=== PATIENT | female | born 1965 | race Two or more races ===

== ENCOUNTER → 2024-03-25 | Outpatient (CLI) | payer BC, SELFPAY ==
[2024-03-25 10:17] LABS: Collection Type, Urine Clean Catch
[2024-03-25 10:40] LABS: Basophils # (Auto) 0.1 Thou/mm3 (0.0-0.2); Basophils % (Auto) 1 % (0-2.5); Eosinophils # (Auto) 0.7 Thou/mm3 (0.0-0.5); Eosinophils % (Auto) 7 % (0-10); Hematocrit 31.3 % (36.0-46.0); Hemoglobin 10.1 g/dL (12.0-16.0); Immature Granulocytes % (Auto) 0 % (0-0); Immature Granulocytes Auto 0.02 Thou/mm3 (0.00-0.00); Lymphocytes # (Auto) 2.1 Thou/mm3 (1.0-4.8); Lymphocytes % (Auto) 22 % (10-50); Mean Corpuscular HGB Conc 32.3 g/dl (31.0-37.0); Mean Corpuscular Hemoglobin 31.2 pg (25.0-35.0); Mean Corpuscular Volume 97 fL (80-100); Monocytes % (Auto) 11 % (0-12); Neutrophils # (Auto) 5.5 Thou/mm3 (1.8-7.7); Neutrophils % (Auto) 59 % (37-80); Nucleated Red Blood Cell % 0 /100 WBC (0); Platelet Count 141 Thou/mm3 (140-440); RDW Standard Deviation 59.6 fL (36.4-46.3); Red Blood Count 3.24 Miln/mm3 (4.00-5.20); White Blood Count 9.3 Thou/mm3 (3.6-11.0)
[2024-03-25 10:57] LABS: Bacteria,Urine 4+; Bilirubin,Urine Negative (Negative); Blood,Urine 2+ (Negative); Glucose, Urine Negative (Negative); Ketones,Urine Trace (Negative); Leukocyte Esterase,Urine Positive (Negative); Nitrite,Urine Negative (Negative); PH,Urine 6.5 (5.0-7.0); Protein,Urine 4+ (Neg - Trace); RBC,Urine 3 /hpf (0-3); Squamous Epithelial Cell,Urine 5 /hpf (0-5); Urobilinogen,Urine Negative mg/dL (0.0-1.0); WBC,Urine 854 /hpf (0-5)
[2024-03-25 11:00] LABS: Clarity,Urine Turbid (Clear/Hazy); Color,Urine Amber (Lt Yel-Yel)
[2024-03-25 11:02] LABS: Glucose Estimated Average 137 mg/dL (80-131); Hemoglobin A1C 6.4 % Hgb (4.8-6.0)
[2024-03-25 11:10] LABS: Creatinine MALB Rnd Ur 74 mg/dL (30-125); Microalbumin Creat Ratio 5135 mg/gCrea (<30); Microalbumin, Random Urine > 3800 mg/L (0-300)
[2024-03-25 11:10] LABS: Alanine Aminotransferase 11 U/L (10-49); Albumin, Serum 3.9 gm/dL (3.5-5.0); Albumin/Globulin Ratio 1.3 (1.2-2.2); Alkaline Phosphatase 126 U/L (46-116); Anion Gap 10 (7-16); BUN/Creatinine Ratio 7 Ratio (12-20); Bilirubin,Total 0.2 mg/dL (0.3-1.2); Blood Urea Nitrogen 51 mg/dL (9-23); Calcium 8.5 mg/dL (8.3-10.6); Calcium (Corrected) 8.6 mg/dL (8.5-10.1); Carbon Dioxide 29.2 mMol/L (20.0-31.0); Cardiac Risk Estimate 3.1 RATIO (3.7-5.6); Chloride 97 mMol/L (98-107); Cholesterol 130 mg/dL (132-200); Creatinine (Component) 7.4 mg/dL (0.6-1.3); Globulin 3.1 gm/dL (2.3-3.5); Glucose 119 mg/dL (74-106); HDL Cholesterol 42 mg/dL (40-60); LDL Cholesterol,Calculated 60 mg/dL (0-130); Osmolality,Calculated 286 (275-295); Sodium 136 mMol/L (136-145); Triglycerides 141 mg/dL (30-150); eGFR 6 See Note
[2024-03-25 11:31] LABS: Aspartate Amino Transferase 12 U/L (0-34)
== END | disposition home or self-care (01) ==
LOC: COPL 09:40
PROVIDERS: PCP Family Medicine; Referring Provider Family Medicine; Visit Provider Family Medicine
DX: E11.65 Type 2 diabetes mellitus with hyperglycemia (principal)
CPT/HCPCS: 36415; 80053; 80061; 81001; 82043; 82570; 83036; 85025

== ENCOUNTER 2024-05-18 11:06 | Emergency (ER) | payer BC, SELFPAY ==
[2024-05-18] VITALS (9 sets, daily range): BP systolic 111–185; BP diastolic 65–85; PULSE 60–85; RESP 12–20; TEMP 36.4–36.6; O2SAT 94–100; BMI 31.1; BMI 29.9
--- NOTE | 2024-05-18 | XR_ITS ---
Examinations: MRI Brain without intravenous contrast. MRA brain without intravenous contrast. MRA carotids without intravenous contrast 3-D vascular reconstructions Date and time of exam: May 18, 2024 1313 hours INDICATIONS: Patient collapsed today, hyperdense area in the right suprasellar region on CT brain scan today Technique: Multiple axial and sagittal images of the brain have been obtained MRA brain carotid images without contrast obtained, including 3-D postprocessing, vascular maximum intensity projection images Findings: Sellaturcica is not enlarged. The optic chiasm and infundibular stalk are not remarkable. Prepontine and interpeduncular cisterns are not enlarged. No localized enlargement of the medulla or betsy. Fourth ventricle and cerebellar tonsils normal in position. Subacute hemorrhage is not seen. Fourth ventricle is midline. Mass in the cerebellopontine angle region is not evident. 7th and 8th nerve complexes exhibits symmetry. Globes are symmetrical with no retro-orbital mass. Increased white matter signal moderate Diffusion-weighted images demonstrate no focus of restricted diffusion Mass-effect upon the ventricular system is not identified. MRA carotid images degraded by patient motion. MRA brain images no large vessel occlusions thrombus dissection or definite cerebral aneurysm Impression: Negative for acute hemorrhage mass effect or midline shift No acute infarct Moderate chronic microvascular white matter change
--- NOTE | 2024-05-18 11:13 | EKG_ITS ---
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
--- NOTE | 2024-05-18 11:13 | XR_ITS ---
Examination: CT cervical spine without contrast 2-D sagittal reconstructions 2-D coronal reconstructions 3-D reconstructions. Exam date and time:May 18, 2024 1119 hours INDICATIONS: Patient fell today with into the neck, neck pain CTDI:vol (mGy) 8.14 DLP: (mGycm) 160 Technique: Multiple 2 mm axial sections of the cervical spine have been obtained. The coronal and sagittal reconstructions have been obtained. 3-D reconstructions have been obtained. Low dose protocols were performed. One or more of the following dose reduction techniques were used; automated exposure control, adjustment of the mA and/or KV according to patient size, use of iterative reconstruction technique. Findings: Axial sections demonstrate intact base of the skull. C1 exhibit satisfactory relationship to the odontoid. No acute cervical vertebral body fracture seen. Alignment posterior spinous processes satisfactory. Impression: No acute cervical fracture.
--- NOTE | 2024-05-18 11:13 | XR_ITS ---
Examination: CT brain head without contrast. 2-D sagittal coronal reconstructions Date and time of exam:May 18, 2024 1119 hours INDICATIONS: Patient fell today after syncopal episode, head pain CTDI: vol (mGy):52.8 DLP: (mGycm):1028 Technique: Multiple CT axial sections of the brain have been obtained, 5 mm slice thickness. Contrast has not been administered. 2-D sagittal, coronal reconstructions have been obtained Low dose protocols were performed. One or more of the following dose reduction techniques were used; automated exposure control, adjustment of the mA and/or KV according to patient size, use of iterative reconstruction technique. Findings: Hyperdense area in the right suprasellar region, coronal image 25, axial image 26, AP dimension of this hyperdense area is 10 mm Differential would include cerebral aneurysm Ventricles are not enlarged No mass effect upon the ventricular system Cranial vault intact IMPRESSION: Hyperdense area in the right suprasellar region, coronal image 25, axial image 26, AP dimension 10 mm medial lateral dimension 8 mm, differential would include cerebral aneurysm with early rupture Recommend brain MRI MRA follow-up pre and postcontrast
--- NOTE | 2024-05-18 11:16 | PD.EDADULT ---
ED General RME/HPI General Chief complaint: Syncope / Near Syncope Stated complaint: SYNCOPAL EPISODE Time Seen by Provider: 05/18/24 11:13 Arrival date/time: 05/18/24 11:06 CC: Syncope HPI patient presents the ER via EMS report hypertension but no other abnormal vital signs, the patient states she does not recall the event at all other than waking up in the ambulance. 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 The patient had no premonition including lightheadedness dizziness flushed sensation nausea or vomiting. Patient is a dialysis patient seen by Dr. Abdalla and is dialyzed Thursday and Thursday. Currently complaining of pain to the back of her head. Currently patient is awake alert oriented no focal deficits not in any acute distress. Related Data Home Medications ?Medication ?Instructions ?Recorded ?Confirmed insulin glargine U-300 conc 300 10 unit subcut QDAY 04/14/22 04/20/23 unit/mL (1.5 mL) subcutaneous pen (TouAstrostaroStar U-300 Insulin) furosemide 80 mg tablet (Lasix) 80 mg PO BID 06/02/22 04/20/23 losartan 50 mg-hydrochlorothiazide 1 tab QDAY 06/02/22 04/20/23 12.5 mg tablet Previous Rx's ?Medication ?Instructions ?Recorded dicyclomine 20 mg tablet 20 mg PO BID PRN pain #20 tabs 05/31/22 docusate sodium 100 mg capsule 100 mg PO BID #40 caps 06/04/22 hydrocodone 7.5 mg-acetaminophen 1 tab PO Q6H PRN pain (scale score 06/04/22 325 mg tablet 7-10) #20 tabs Allergies Allergy/AdvReac Type Severity Reaction Status Date / Time JALAPENOS Allergy Unknown Unresponsiv Uncoded 04/20/23 10:01 e Review of Systems Review of Systems Narrative Review of Systems: GEN: No fever, no chills, no weight loss EYES: No discharge, no visual changes, no pain HEENT: No ear pain, no congestion, no sore throat PULM: No shortness of breath, no cough, no congestion CV: No chest pain, no dyspnea on exertion, no palpitations GI: No nausea, no vomiting, no diarrhea, no pain, no constipation : No frequency, no urgency, no dysuria MUSC/SKEL: No joint pain, no back pain SKIN: No rash PSYCH: No hallucinations, no depression HEME/LYMPH: No easy bleeding or bruising tendencies NEURO: No weakness, + headache Past Medical History Past Medical History NEUROLOGIC: Negative Neurological Disorders or Seizures CARDIAC: Positive Cardiac Disorders, Hypercholesterolemia, Congestive Heart Failure and Hypertension RESPIRATORY: Positive Asthma and Bronchitis; Negative Chronic Obstructive Pulmonary Disease (COPD) GASTROINTESTINAL: Positive Gastrointestinal Disorders and Gall Bladder Disease GENITOURINARY: Positive Genitourinary Disorders (needs dialysis) and Renal Disease REPRODUCTIVE: Negative Previous Pregnancies MUSCULOSKELETAL: Positive Musculoskeletal Disorders and Arthritis ENDOCRINE: Positive Endocrine Disorders and Diabetes Mellitus Type 2; Negative Diabetes Mellitus Type 1 HEMATOLOGIC: Positive Blood Disorders and Anemia PSYCHO/SOCIAL: Positive Anxiety (many years ago) OTHER HISTORY: Positive Blood Transfusions and Cancer; Negative Blood Transfusion Reaction, Anesthesia Reactions, Chemotherapy or Radiation Therapy Family History FAMILY HISTORY: Positive Family Cardiac Disorders Surgical History SURGICAL: Positive Ear Surgery, Tympanostomy Tube (as a child), Tonsillectomy, Abdominal Surgery and Hysterectomy (2008); Negative Cardiac Surgery, Pacemaker, Joint Replacement or Tubal Ligation Social History SMOKING STATUS: Never smoker SUBSTANCE USE: does not use ED Exam Narrative Physical exam: [General: Obese not in any acute distress Head normocephalic HEENT: Within acceptable limits Neck is supple nontender Chest equal chest rise nontender to palpation, right anterior chest dialysis catheter dressing clean dry and intact. Respiratory: Clear to auscultation no wheezes crackles or rubs CV: Rate rhythm is regular no murmurs rubs or clicks Abdomen is distended secondary to body habitus soft nontender no masses positive bowel sounds all 4 quadrants Back: No CVA tenderness no spinous process tenderness from cervical spine thoracic and lumbar spine Skin: Intact no petechiae rash induration ulceration or crepitus Extremities: Moving all extremity against resistance cap refill less than 2 seconds neurosensory intact Neuro: Awake alert oriented x3 Glascow coma 15 no focal deficits] Course Course Course Narrative: Patient's case discussed with the transfer nurse, patient accepted by Dr. Nieves at [facility]. We will address the hyperkalemia prior to transport. Patient is in agreement with the plan. Quality Measures none Orders Category Date Time Status EKG (ED ONLY) *Do not use* NOW Care 05/18/24 11:13 Completed MRI Screening NOW Care 05/18/24 12:05 Active MRI Screening NOW Care 05/18/24 13:08 Active Transfer to another facility [Transfer/Discharge] Stat Discharge 05/18/24 13:[address] cervical spine wo con Stat Exams 05/18/24 11:[address] head/brain wo con Stat Exams 05/18/24 11:13 Completed EKG (ED Only) Stat Exams 05/18/24 11:13 Ordered MR brain wo MRA brn wo avalos wo Stat Exams 05/18/24 Ordered MR brain wwo MRA brn wo avalos w Stat Exams 05/18/24 Ordered B-Type Natriuretic Peptide Stat Lab 05/18/24 11:59 Completed CBC Stat Lab 05/18/24 11:59 Completed Comprehensive Metabolic Panel Stat Lab 05/18/24 11:59 Completed Drug Screen,Urine Stat Lab 05/18/24 11:13 Ordered LDH (Lactate Dehydrogenase) Stat Lab 05/18/24 11:59 Completed Magnesium Stat Lab 05/18/24 11:59 Completed Partial Thromboplastin Time Stat Lab 05/18/24 14:00 Received Prothrombin Time with INR Stat Lab 05/18/24 14:00 Received Troponin I Stat Lab 05/18/24 11:59 Completed Urinalysis Stat Lab 05/18/24 11:13 Ordered ALBUTEROL RT 0.5ml [Proventil Rt 0.5ml] Med 05/18/24 13:54 Discontinued 2.5 mg INH X1 ONE Calcium Gluconate 10% Inj Med 05/18/24 13:54 Discontinued 1 gm IV X1 ONE Dextrose 50% Syr [D50w Syringe Abboject] Med 05/18/24 13:54 Discontinued 25 ml IV X1 ONE Insulin Regular Med 05/18/24 13:54 Discontinued 5 unit IV X1 ONE Sodium Chloride Rt Shiloh 0.9% [NS Rt Shiloh 0.9%] Med 05/18/24 13:54 Active 3 ml INH PRN PRN Vital Signs Vital signs: Vital Signs Pulse Rate 83 05/18/24 11:10 Blood Pressure 185/72 H 05/18/24 11:10 Pulse Oximetry (%) 97 05/18/24 11:10 Oxygen Delivery Method Room Air 05/18/24 11:10 [facility] Patient data External records reviewed:: [facility] previous records and EMS form Clinical information provided by:: patient and EMS Social determinants that could affect healthcare access:: none Patient has the following chronic illnesses:: ESRD on dialysis diabetes How is presenting disease/condition affected by chronic disease/condition?: uneffected by Evaluation data The following diagnostics were reviewed and interpreted by me:: lab results, radiology exam(s) and EKG tracing(s) Lab and/or radiology exams considered but not ordered:: EKG performed at 1122 shows a ventricular rate of 84. Of 190 QRS of 93 QTc of 433 is sinus rhythm nonspecific ST segment changes. When compared to an old EKG of May 2022 there are no significant changes. Interpretation Summary: CT head without contrast shows the patient has a hypertensive area in the right suprasellar region which may represent cerebral aneurysm with early rupture. Will now do MRI/MRA brain and carotids. CBC shows leukocytosis of 11.4 H&H of 11.2 and 33.1 respectively with platelets at 168. CMP shows sodium 134 potassium is 6.0 BUN of 60 creatinine of 7.8 glucose of 138 no transaminitis or T. bili elevation Medications Medications considered but not ordered:: None Medication administrations:: Medication Administration History Sodium Chloride (Sodium Chloride Rt Shiloh 0.9% 3 Ml Nebu) 3 ml INH PRN PRN PRN Reason: SOLN Stop: 06/17/24 13:53 Last Admin: 05/18/24 14:11 Dose: 3 ml Documented By: ECHO Discontinued Medications Albuterol (Albuterol Rt 2.5 Mg/0.5 Ml Nebu) 2.5 mg INH X1 ONE Stop: 05/18/24 13:55 Last Admin: 05/18/24 14:11 Dose: 2.5 mg Documented By: ECHO Calcium Gluconate (Calcium Gluconate 10% Inj 1 Gm/10 Ml Vial) 1 gm IV X1 ONE Stop: 05/18/24 13:55 Dextrose (Dextrose 50%-Water Inj 50 Ml Syringe) 25 ml IV X1 ONE Stop: 05/18/24 13:55 Insulin Human Regular (Insulin Hum Regular 1 Unit/0.01 Ml (Per Unit)) 5 unit IV X1 ONE Stop: 05/18/24 13:55 None Consultations Consultation(s) initiated? (list below): No Diagnosis Differential Diagnosis ED Complaint MDM: Intercranial hemorrhage skull fracture hyperkalemia Most likely diagnosis given after review of the tests above:: Into cranial hemorrhage, hyperkalemia Admission Indicated Admission indicated?: indicated Explain why admission is indicated or not indicated:: Transfer Admission Request Was there a request for admission?: No Disposition Plan Disposition Plan: Transfer Medical Decision Making Differential Diagnosis Differential Diagnosis: Intercranial hemorrhage skull fracture hyperkalemia Lab Data 05/18/24 11:59 05/18/24 11:59 Labs: Lab Results 05/18/24 Range/Units 11:59 WBC 11.4 H (3.6-11.0) Thou/mm3 RBC 3.45 L (4.00-5.20) Miln/mm3 Hgb 11.2 L (12.0-16.0) g/dL Hct 33.1 L (36.0-46.0) % MCV 96 (80-100) fL MCH 32.5 (25.0-35.0) pg MCHC 33.8 (31.0-37.0) g/dl RDW Std Deviation 50.7 H (36.4-46.3) fL Plt Count 168 (140-440) Thou/mm3 Neut % (Auto) 63 (37-80) % Lymph % (Auto) 19 (10-50) % Meeker % (Auto) 11 (0-12) % Eos % (Auto) 6 (0-10) % Baso % (Auto) 1 (0-2.5) % Neut # (Auto) 7.2 (1.8-7.7) Thou/mm3 Lymph # (Auto) 2.2 (1.0-4.8) Thou/mm3 Meeker # (Auto) 1.2 H (0.0-0.8) Thou/mm3 Eos # (Auto) 0.6 H (0.0-0.5) Thou/mm3 Baso # (Auto) 0.1 (0.0-0.2) Thou/mm3 Immature Gran # (Auto) 0.07 H (0.00-0.00) Thou/mm3 Absolute Nucleated RBC 0.00 (0.00-0.00) Thou/mm3 Immature Gran % 1 H (0-0) % Nucleated RBC % 0 (0) /100 WBC Sodium 134 L (136-145) mMol/L Potassium 6.0 H (3.4-5.1) mMol/L Chloride 98 (98-107) mMol/L Carbon Dioxide 25.0 (20.0-31.0) mMol/L Anion Gap 11 (7-16) BUN 60 H (9-23) mg/dL Creatinine 7.8 H* (0.6-1.3) mg/dL Estim Creat Clear Calc 8.4 L (>60) mL/min eGFR 6 L* (60 - ) See Note BUN/Creatinine Ratio 8 L (12-20) Ratio Glucose 138 H (74-106) mg/dL Calculated Osmolality 287 (275-295) Calcium 9.0 (8.3-10.6) mg/dL Corrected Calcium 9.0 (8.5-10.1) mg/dL Magnesium 2.5 (1.6-2.6) mg/dL Total Bilirubin 0.2 L (0.3-1.2) mg/dL AST 23 (0-34) U/L ALT 10 (10-49) U/L Alkaline Phosphatase 115 (46-116) U/L Lactate Dehydrogenase 353 H (120-246) U/L Troponin I < 0.020 (0.0-0.045) ng/mL B-Natriuretic Peptide 163 H (0-100) pg/mL Total Protein 8.2 (5.7-8.2) gm/dL Albumin 4.3 (3.5-5.0) gm/dL Globulin 3.9 H (2.3-3.5) gm/dL Albumin/Globulin Ratio 1.1 L (1.2-2.2) Discharge Plan Plan Patient Disposition: [facility] Acute Care [facility] Facility Pt Being Transferred to: [facility] Service Needed for Transfer: Neurosurgery Patient condition on transfer: Stable Prescriptions/Referrals Prescriptions/Med Rec: No Action insulin glargine U-300 conc [Toujeo SoloStar U-300 Insulin] 300 unit/mL (1.5 mL) Insulin Pen 10 unit SUBCUT QDAY furosemide [Lasix] 80 mg Tablet 80 mg PO BID losartan-hydrochlorothiazide 50-12.5 mg Tablet 1 tab QDAY docusate sodium 100 mg Capsule 100 mg PO BID Qty: 40 0RF hydrocodone-acetaminophen 7.5-325 mg tablet 1 tab PO Q6H MDD 4 PRN (Reason: pain (scale score 7-10)) Qty: 20 0RF dicyclomine 20 mg tablet 20 mg PO BID PRN (Reason: pain) Qty: 20 0RF Referrals: To Bertrand MD [Primary Care Provider] - In 1 week Problem List Clinical Impression: Intracranial hemorrhage, Hyperkalemia Patient/Caregiver Discharge Instructions Print Language: Trinidadian Stand Alone Forms: Margarita Award Info., Patient Portal Info Letter PA/TOOL REPAIR TECHNICIAN Supervising Physician PA/TOOL REPAIR TECHNICIAN Supervising Physician: Shubham Bray ENP
--- NOTE | 2024-05-18 12:02 | PC.NURSE ---
pt brought in by ems for a syncope episode
[2024-05-18 12:26] LABS: Basophils # (Auto) 0.1 Thou/mm3 (0.0-0.2); Basophils % (Auto) 1 % (0-2.5); Eosinophils # (Auto) 0.6 Thou/mm3 (0.0-0.5); Eosinophils % (Auto) 6 % (0-10); Hematocrit 33.1 % (36.0-46.0); Hemoglobin 11.2 g/dL (12.0-16.0); Immature Granulocytes % (Auto) 1 % (0-0); Immature Granulocytes Auto 0.07 Thou/mm3 (0.00-0.00); Lymphocytes # (Auto) 2.2 Thou/mm3 (1.0-4.8); Lymphocytes % (Auto) 19 % (10-50); Mean Corpuscular HGB Conc 33.8 g/dl (31.0-37.0); Mean Corpuscular Hemoglobin 32.5 pg (25.0-35.0); Mean Corpuscular Volume 96 fL (80-100); Monocytes # (Auto) 1.2 Thou/mm3 (0.0-0.8); Monocytes % (Auto) 11 % (0-12); Neutrophils # (Auto) 7.2 Thou/mm3 (1.8-7.7); Neutrophils % (Auto) 63 % (37-80); Nucleated Red Blood Cell % 0 /100 WBC (0); Platelet Count 168 Thou/mm3 (140-440); RDW Standard Deviation 50.7 fL (36.4-46.3); Red Blood Count 3.45 Miln/mm3 (4.00-5.20); White Blood Count 11.4 Thou/mm3 (3.6-11.0)
--- NOTE | 2024-05-18 12:50 | PC.NURSE ---
pt states they only void alittle . Provider notified
[2024-05-18 12:53] LABS: Alanine Aminotransferase 10 U/L (10-49); Albumin, Serum 4.3 gm/dL (3.5-5.0); Albumin/Globulin Ratio 1.1 (1.2-2.2); Alkaline Phosphatase 115 U/L (46-116); Anion Gap 11 (7-16); Aspartate Amino Transferase 23 U/L (0-34); BUN/Creatinine Ratio 8 Ratio (12-20); Bilirubin,Total 0.2 mg/dL (0.3-1.2); Blood Urea Nitrogen 60 mg/dL (9-23); Chloride 98 mMol/L (98-107); Creatinine (Component) 7.8 mg/dL (0.6-1.3); Estimated Creatinine Clearance 8.4 mL/min (>60); Globulin 3.9 gm/dL (2.3-3.5); Glucose 138 mg/dL (74-106); LDH (Lactate Dehydrogenase) 353 U/L (120-246); Magnesium 2.5 mg/dL (1.6-2.6); Osmolality,Calculated 287 (275-295); Sodium 134 mMol/L (136-145); Total Protein 8.2 gm/dL (5.7-8.2); Troponin I < 0.020 ng/mL (0.0-0.045); eGFR 6 See Note
--- NOTE | 2024-05-18 12:58 | PC.NURSE ---
pt was taken to MRI
[2024-05-18 12:59] LABS: B-Type Natriuretic Peptide 163 pg/mL (0-100)
--- NOTE | 2024-05-18 13:10 | PC.CC ---
Addendum entered by Rosie Everett RN 05/18/24 14:52: 1449 [facility] and informed pt left at 1446. Addendum entered by Rosie Everett RN 05/18/24 14:45: [address] [facility] through [employer]. [facility] spoke to Rafaela and she confirmed that she received the paperwork. Addendum entered by Rosie Everett RN 05/18/24 14:44: 1430 Made 2 transfer packets. 1 for [facility] with CD inside and 1 for [facility]. Completed all signatures. Notified bedside nurse of the transfer packet and number to call for report. Addendum entered by Rosie Everett RN 05/18/24 14:42: 1430 transfer packet is complete with CD inside including all signatures. Notified bedside nurse of the transfer packet and number to call for report. Addendum entered by Rosie Everett RN 05/18/24 14:08: 1408 images pushed over to [facility] through [employer]. 1401 received call from [facility], they want me to push images to [facility]. Addendum entered by Rosie Everett RN 05/18/24 13:56: 1352 received call from [place] with [facility] that pt is accepted by neurologist Dr. Tosha Abdalla and ED physcian Dr. Marie Valentine at [facility] for ED to ED transfer. Call report at [phone]. Addendum entered by Rosie Everett RN 05/18/24 13:49: 1347 called [facility], spoke to Sadaf for transfer update. She stated they are waiting for [facility] neuro-surgeon to call back regarding acceptance. Addendum entered by Rosie Everett RN 05/18/24 13:46: 1346 received call from Julien at [employer] that the team will be at bedside at 1405. Addendum entered by Rosie Everett RN 05/18/24 13:41: 1337 called [facility] , spoke to Julien to setup the transport. She stated she will call me back after flight check. Original Note: 1316 called [facility], spoke to Jacque and initiated the transfer. She then transferred me to Sanna CAMARILLO and I gave her verbal clinicals. I also faxed clinicals to [facility] while giving verbal clinicals. Total call time 13 min. 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
[2024-05-18] MEDS: INSULIN HUM REGULAR 1 UNIT/0.01 ML (PER UNIT) 5 UNIT IV (14:10)
[2024-05-18] MEDS: CALCIUM GLUCONATE 10% INJ 1 GM/10 ML VIAL IV (14:10)
[2024-05-18] MEDS: ALBUTEROL RT 2.5 MG/0.5 ML NEBU INH (14:11)
[2024-05-18] MEDS: SODIUM CHLORIDE RT SOL 0.9% 3 ML NEBU INH (14:11)
[2024-05-18] MEDS: DEXTROSE 50%-WATER INJ 50 ML SYRINGE 25 ML IV (14:12)
--- NOTE | 2024-05-18 14:33 | PC.NURSE ---
bedside report given to reach [facility]s and tellphone report given to solo brewer at [facility]
--- NOTE | 2024-05-18 15:51 | PRELIM_ITS ---
MR angiogram of the intracranial vessels without and with intravenous contrast. May 18, 2024 1310 hours Clinical History: Possible ruptured aneurysm. Technique: 3D TOF MR angiography was performed. 3D reconstructions and MIPS were reviewed. Findings: origin of the left posterior cerebral artery. The left posterior cerebral artery A1 segment is not visualized. Bilateral internal carotid, middle and anterior cerebral arteries, vertebral, basilar and posterior cerebral arteries are unremarkable. There is no evidence of vascular occlusion, malformation or aneurysm. Scattered foci of increased T2 signal are present in bilateral cerebral white matter. Impression: Unremarkable MRA of brain. Brain MRI without intravenous contrast Findings: There are subcortical and periventricular white matter T2 and FLAIR hyperintensities, suggestive of chronic small vessel ischemia. There is no evidence of restricted diffusion to suggest acute infarct. There is no intracranial hemorrhage, mass effect or midline shift. The ventricles, basal cisterns and sulci are slightly prominent, suggestive of volume loss. Normal intracranial flow voids are noted. The calvarium, pituitary fossa and cervicomedullary junction appear unremarkable. The visualized paranasal sinuses are clear. Impression: Mild volume loss and chronic small vessel ischemic changes. MR angiogram of the neck vessels with intravenous contrast. Technique: 2D time of flight MRA and axial T1 without contrast and 3D time of flight contrast enhanced angiogram of the neck vessels were obtained. Findings: The common carotid arteries, carotid bulbs and internal and external carotid arteries are patent, bilaterally. There is no evidence of vascular occlusion, critical stenosis, dissection or aneurysm. Impression: Unremarkable MRA of the neck. Method of Assessment: NASCET CRITERIA Mild stenosis 0% to 49%: / Moderate 50% to 69%: / Severe stenosis 70% to 99%: Reference: [email or web address]://[email or web address].org/doi/[email or web address] Report Electronically Signed By: Jose Alfredo Grider 05/18/2024 3:50:58 PM [EST]
== END 2024-05-18 14:46 | disposition short-term general hospital (02) ==
PROVIDERS: Registered Nurse General Practice; Emergency Provider Family Medicine; PCP Family Medicine
DX: I62.9 Nontraumatic intracranial hemorrhage, unspecified (principal); E87.5 Hyperkalemia; M54.2 Cervicalgia; R94.31 Abnormal electrocardiogram [ECG] [EKG]; I50.9 Heart failure, unspecified; I12.0 Hypertensive chronic kidney disease with stage 5 chronic kidney disease or end stage renal disease; E11.22 Type 2 diabetes mellitus with diabetic chronic kidney disease; N18.6 End stage renal disease; Z99.2 Dependence on renal dialysis; Z79.4 Long term (current) use of insulin; Z75.1 Person awaiting admission to adequate facility elsewhere
CPT/HCPCS: 36415; 70450; 70544; 72125; 80053; 80307; 81001; 83615; 83735; 83880; 84484; 85025; 85610; 85730; 93005; 94640; 99285; J0612; J1815

== ENCOUNTER → 2024-07-27 | Outpatient (CLI) | payer BC, SELFPAY ==
[2024-07-27 13:32] LABS: Free T4 (Free Thyroxine) 1.15 ng/dL (0.89-1.76); Thyroid Stimulating Hormone 2.24 uIU/mL (0.55-4.78)
== END | disposition home or self-care (01) ==
LOC: COPL 12:46
PROVIDERS: PCP Family Medicine; Referring Provider Family Medicine; Visit Provider Family Medicine
DX: E07.9 Disorder of thyroid, unspecified (principal); E04.9 Nontoxic goiter, unspecified
CPT/HCPCS: 36415; 84439; 84443

== ENCOUNTER 2024-08-26 08:30 | Outpatient (RCR) | payer BC, SELFPAY ==
--- NOTE | 2024-08-25 08:30 | XR_ITS ---
Examination: Thyroid sonography complete TECHNIQUE: Oral administration 296 uCi I-123 6 hour 24 hour uptake values recorded as well as anterior oblique scans Date and time: August 25, 2024 0731 hours INDICATIONS: History thyroid nodule, difficulty swallowing months FINDINGS: 6 hour uptake 4.5% normal range 6-24% 24 hour uptake 12.9% normal range 10-36% Homogeneous scan appearance IMPRESSION: Negative study
== END 2024-08-31 23:59 | disposition home or self-care (01) ==
LOC: SNUC 08:30
PROVIDERS: PCP Family Medicine; Referring Provider Family Medicine; Visit Provider Family Medicine
DX: E04.1 Nontoxic single thyroid nodule (principal)
CPT/HCPCS: 78013; A9516